=== PATIENT | female | born 1990 | race Caucasian/White ===

== ENCOUNTER → 2018-11-26 | Outpatient (CLI) | payer OTHER | LOC: BHSO 13:50 | DX: F41.1 Generalized anxiety disorder (principal) ==

== ENCOUNTER → 2018-12-10 | Outpatient (CLI) | payer OTHER | LOC: BHSO 13:53 | DX: F41.1 Generalized anxiety disorder (principal) ==

== ENCOUNTER → 2018-12-15 | Outpatient (CLI) | payer OTHER | LOC: BHSO 15:58 | DX: F41.1 Generalized anxiety disorder (principal) ==